=== PATIENT | female | born 1970 | race Two or more races ===

== ENCOUNTER → 2025-06-18 | Outpatient (CLI) | payer BC ==
[2025-06-18 16:08] LABS: BASOPHILS % 0.2 % (0.0-2.0); EOSINOPHILS % 0.5 % (0.0-5.0); HEMATOCRIT. 40.0 % (36.0-48.0); HEMOGLOBIN. 13.3 g/dL (12.0-16.0); LYMPHOCYTES % 32.5 % (20.0-50.0); MEAN PLATELET VOLUME 8.8 fl (7.4-10.4); MONOCYTES % 7.1 % (2.0-8.0); NEUTROPHILS % 59.7 % (40.0-76.0); PLATELET 276 x1000/uL (130-400); RED BLOOD CELL COUNT 4.57 mill/uL (4.2-5.4); RED CELL DISTRIBUTION WIDTH 12.9 % (11.6-14.6)
[2025-06-18 16:32] LABS: CREATININE 0.8 mg/dL (0.6-1.0)
[2025-06-18 16:33] LABS: LDL CHOLESTEROL 106 mg/dL (5-100); TRIGLYCERIDE 104 mg/dL (0-150); UREA NITROGEN BLOOD 8 mg/dL (9-23)
[2025-06-18 16:34] LABS: ASPARTATE AMINOTRANSFERASE 32 IU/L (<34)
[2025-06-18 16:35] LABS: BILIRUBIN TOTAL 0.7 mg/dL (0.1-1.0); PROTEIN TOTAL 7.6 g/dL (6.0-8.3)
[2025-06-18 16:36] LABS: T4 FREE 1.11 ng/dL (0.89-1.76)
== END | disposition home or self-care (01) ==
LOC: LAB 15:31
PROVIDERS: ATTEND Internal Medicine Critical Care Medicine
DX: Z00.01 Encounter for general adult medical examination with abnormal findings (principal)
CPT/HCPCS: 36415; 80053; 80061; 82306; 84439; 84443; 84481; 85025

== ENCOUNTER → 2025-11-05 | Outpatient (CLI) | payer BC | END | disposition home or self-care (01) | LOC: MAMMO 12:51 | PROVIDERS: ATTEND Internal Medicine Critical Care Medicine | DX: Z12.31 Encounter for screening mammogram for malignant neoplasm of breast (principal); R92.323 Mammographic fibroglandular density, bilateral breasts | CPT/HCPCS: 73560; 77063; 77067 ==